=== PATIENT | male | born 1975 | race Two or more races ===

== ENCOUNTER 2020-01-05 10:39 | Outpatient (CLI) | payer OTHER | END 2020-01-05 11:00 | disposition home or self-care (01) | LOC: RAD 10:39 | PROVIDERS: ATTEND Legal Medicine | DX: M25.522 Pain in left elbow (principal) ==

== ENCOUNTER 2024-12-27 20:48 | Emergency (ER) | payer OTHER ==
[~2024-12-27] VITALS: Ht 177.8 cm; Wt 82.6 kg
[2024-12-27 20:52] VITALS: BP 117/68; O2SAT 97
== END 2024-12-27 21:18 | disposition home or self-care (01) ==
LOC: ER 21:12
DX: S01.112A Laceration without foreign body of left eyelid and periocular area, initial encounter (principal); W45.8XXA Other foreign body or object entering through skin, initial encounter; Y93.59 Activity, other involving other sports and athletics played individually; Y92.832 Beach as the place of occurrence of the external cause; Y99.9 Unspecified external cause status